=== PATIENT | male | born 1955 | race African-American/Black ===

== ENCOUNTER 2016-11-11 12:48 | Emergency (ER) | payer OTHER ==
[~2016-11-11] VITALS: Ht 185.4 cm; Wt 101.0 kg
[2016-11-11] MEDS ORDERED: ULTRAM50 MG PO (13:57)
[2016-11-11] MEDS ORDERED: MOTRIN800 MG PO (13:57)
[2016-11-11] MEDS ORDERED: PEN-VEE K,VEET500 MG PO (13:57)
[2016-11-11 14:26] VITALS: BP 143/112
== END 2016-11-11 14:26 | disposition home or self-care (01) ==
LOC: EME 12:48
DX: K02.9 Dental caries, unspecified (principal)
CPT/HCPCS: 99281; 99284